=== PATIENT | female | born 1955 | race Caucasian/White ===

== ENCOUNTER 2017-09-13 04:55 | Observation (INO) | payer MEDICARE, OTHER ==
[2017-09-13] MEDS ORDERED: NITROGLYCERIN OINT 1 INCH/GM PACKET TOPICAL STA (05:35)
[2017-09-13] MEDS ORDERED: ASPIRIN 81 MG PO STA (05:35)
[2017-09-13 05:49] LABS: Basophils # (A) 0.1 k/uL (0-0.2); Basophils % (A) 1 %; Eosinophils # (A) 0.3 k/uL (0-0.7); Eosinophils % (A) 3 %; HCT 39.9 % (34.0-46.0); HGB 13.5 gm/dL (11.4-16.0); Lymphocytes # (A) 2.6 k/uL (1.0-4.8); Lymphocytes % (A) 28 %; MCH 30.4 pg (25.0-35.0); MCHC 33.9 g/dL (31.0-37.0); MCV 89.9 fL (80.0-100.0); Mean Platelet Volume 7.6; Monocytes # (A) 0.6 k/uL (0-1.0); Monocytes % (A) 7 %; Neutrophils # (A) 5.5 k/uL (1.3-7.7); Neutrophils % (A) 60 %; Platelet Count 275 k/uL (150-450); RBC 4.44 m/uL (3.80-5.40); WBC 9.2 k/uL (3.8-10.6)
[2017-09-13 05:58] LABS: ALT 41 U/L (9-52); AST 37 U/L (14-36); Albumin 4.1 g/dL (3.5-5.0); Alkaline Phosphatase 110 U/L (38-126); Anion Gap 12 mmol/L; Blood Urea Nitrogen 19 mg/dL (7-17); Calcium 9.7 mg/dL (8.4-10.2); Carbon Dioxide 24 mmol/L (22-30); Chloride 107 mmol/L (98-107); Glucose 118 mg/dL (74-99); Magnesium 2.1 mg/dL (1.6-2.3); Potassium 4.3 mmol/L (3.5-5.1); Sodium 143 mmol/L (137-145); Total Bilirubin 0.7 mg/dL (0.2-1.3); Total Protein 6.7 g/dL (6.3-8.2)
--- NOTE | 2017-09-13 06:00 | ED ---
Chest Pain HPI - General Chief Complaint: Chest Pain Stated Complaint: Chest Pain Time Seen by Provider: 09/13/17 05:03 Source: patient Mode of arrival: wheelchair Limitations: no limitations - History of Present Illness Initial Comments: This patient is a 62-year-old woman who presents to be evaluated for a little over 2 days of intermittent symptoms to the left chest, left shoulder, and left neck. She states that it feels like a tightness, and that it does seem to move around. She states that it sometimes it's in the chest, sometimes in the shoulder towards the scapula, sometimes in the left neck. She denies any injury inciting all this. She states that the pains will last about a half an hour. She has not noted worsening symptoms, and states that it may be a little better if she presses on the chest wall. She states that it intensity is moderate. No associated symptoms. MD Complaint: chest pain Onset/Timin -: days(s) Onset: during rest Pain Location: left chest Severity: moderate Quality: tightness Consistency: intermittent Improves With: nothing Worsens With: nothing Treatments Prior to Arrival: none - Related Data Home Medications Medication Instructions Recorded Confirmed Multivitamin [Multivitamins Adult 2 tab PO DAILY 09/13/17 09/13/17 Gummies] Allergies Allergy/AdvReac Type Severity Reaction Status Date / Time No Known Allergies Allergy Verified 09/13/17 11:05 Review of Systems ROS Statement: Those systems with pertinent positive or pertinent negative responses have been documented in the HPI. ROS Other: All systems not noted in ROS Statement are negative. Constitutional: Denies: fever, chills, weakness Respiratory: Denies: cough, dyspnea, wheezes, hemoptysis Cardiovascular: Reports: as per HPI, chest pain. Denies: palpitations, orthopnea, edema, syncope Gastrointestinal: Denies: abdominal pain, nausea, vomiting, diarrhea Genitourinary: Denies: dysuria, hematuria Musculoskeletal: Denies: back pain Skin: Denies: rash Neurological: Denies: headache, weakness, numbness EKG Findings - EKG Results: EKG: interpreted by HEATHER JEREZ, sinus rhythm (Rate 79 bpm), normal axis, normal QRS, normal ST/T, no acute changes - ND, Pacemaker, Normal: Normal tracing: normal tracing Past Medical History Past Medical History: No Reported History History of Any Multi-Drug Resistant Organisms: None Reported Past Surgical History: Orthopedic Surgery, Tubal Ligation Past Psychological History: No Psychological Hx Reported Smoking Status: Current every day smoker Past Alcohol Use History: Rare Past Drug Use History: None Reported - Past Family History Brother(s) Family Medical History: Myocardial Infarction ([place]) Additional Family Medical History / Comment(s): in the 50's from mi Sister(s) Family Medical History: Myocardial Infarction ([place]) Additional Family Medical History / Comment(s): sister in 50's from mi General Exam Limitations: no limitations General appearance: alert, in no apparent distress Head exam: Present: atraumatic, normocephalic Eye exam: Present: normal appearance. Absent: scleral icterus, conjunctival injection Neck exam: Present: normal inspection, full ROM. Absent: tenderness Respiratory exam: Present: normal lung sounds bilaterally. Absent: respiratory distress, wheezes, rales, rhonchi, stridor, chest wall tenderness Cardiovascular Exam: Present: regular rate, normal rhythm, normal heart sounds. Absent: systolic murmur, diastolic murmur, rubs, gallop GI/Abdominal exam: Present: soft. Absent: distended, tenderness, guarding, rebound, mass Extremities exam: Present: normal inspection, normal capillary refill. Absent: pedal edema, calf tenderness Back exam: Present: normal inspection. Absent: CVA tenderness (R), CVA tenderness (L), paraspinal tenderness, vertebral tenderness Neurological exam: Present: alert Skin exam: Present: warm, dry, intact, normal color. Absent: rash Course Vital Signs 09/13/17 09/13/17 09/13/17 04:57 05:14 05:18 Temperature 98.7 F 98.2 F Pulse Rate 80 77 Pulse Rate [ 78 Right] Respiratory 16 14 Rate Blood Pressure 134/72 122/71 O2 Sat by Pulse 99 98 Oximetry 09/13/17 09/13/17 09/13/17 05:21 06:47 07:42 Temperature 98.3 F 98.2 F Pulse Rate 76 75 Pulse Rate [ Right] Respiratory 14 14 16 Rate Blood Pressure 110/60 105/60 O2 Sat by Pulse 97 98 Oximetry Disposition Clinical Impression: Chest pain Disposition: ADMITTED IP TO THIS HOSP Condition: Good Is patient prescribed a controlled substance at d/c from ED?: No
[2017-09-13 06:11] LABS: D-Dimer 0.49 mg/L FEU (<0.60); Partial Thromboplastin Time 22.5 sec (22.0-30.0); Prothrombin Time 9.5 sec (9.0-12.0)
--- NOTE | 2017-09-13 06:27 | XR ---
EXAM: XR Chest, 2 Views CLINICAL HISTORY: Chest Pain TECHNIQUE: Frontal and lateral views of the chest. COMPARISON: June 11, 2011 FINDINGS: Lungs: Mild prominence interstitial markings. This is increased compared to prior study Pleural space: Unremarkable. No pneumothorax. Heart: Unremarkable. No cardiomegaly. Mediastinum: Unremarkable. Bones/joints: Unremarkable. IMPRESSION: Mild prominence interstitial markings. No evidence for effusions or infiltrates
[2017-09-13 06:42] LABS: Troponin I 0.02 ng/mL (0.000-0.034)
[2017-09-13] MEDS ORDERED: NITROGLYCERIN SL TABS 0.4 MG TAB SUBLINGUAL PRN (07:07)
[2017-09-13] MEDS ORDERED: SODIUM CHLORIDE 0.9% 1,000 ML IV SCH (07:15)
[2017-09-13] MEDS ORDERED: MORPHINE SULFATE 4MG/4ML SYRG IV STA (07:20)
[2017-09-13] MEDS ORDERED: KETOROLAC 30 MG/ML 1 ML VIAL IVP STA (07:20)
--- NOTE | 2017-09-13 08:45 | CONS ---
CONSULTATION HISTORY: Ms. Almanza is a 62-year-old female who does not follow with a physician, who came in through the emergency room with symptoms of left-sided chest discomfort. The discomfort started few days ago, worse last night. It is in the shoulder radiating to the neck and worse sometime when she is sitting up or with breathing. She is usually active physically, has no exertional chest pain or exertional dyspnea. She has no dizziness, palpitation, or syncope. She has no prior documented history of coronary artery disease. Her coronary risk factors are positive for smoking. She is nondiabetic, non hypertension and her lipid profile is not available. MEDICATION: His medications at home include Motrin on a p.r.n. basis. REVIEW OF SYSTEMS: RESPIRATORY system: No history of documented asthma, emphysema or bronchitis. GI system: No recent GI bleed. No peptic ulcer disease. system: No dysuria or hematuria. Nervous system: No stroke or seizure. PHYSICAL EXAMINATION: She is a 62-year-old female, alert, oriented, no apparent distress. Blood pressure 105/60 with a heart rate in 70s. HEAD: Normocephalic. Eyes: Sclerae anicteric. Neck good upstroke. No bruit. No jugular venous distention. LUNGS: Clear to auscultation. HEART: Regular rate and rhythm. S1, S2. No S3, no S4. No murmur or rub. ABDOMEN: Soft, nontender. Positive bowel sounds. No organomegaly. EXTREMITIES: No edema. Intact distal pulses. LAB DATA: Lab data revealed a troponin of 0.02. BUN and creatinine of 19 and 0.8. Potassium 4.3, hemoglobin 13.5. EKG revealed a sinus mechanism with a normal axis and intervals. Normal electrocardiogram. Chest x-ray shows no acute infiltrate. IMPRESSION: 1. Chest and shoulder discomfort have atypical features for ischemic heart disease, appears to be noncardiac. 2. Chronic tobacco use. RECOMMENDATION: I will obtain an echocardiogram with Doppler. We will follow her cardiac enzyme and if there is no evidence of significant abnormality then I would expect she should be able to be discharged home to undergo a stress echocardiogram as an outpatient. I have encouraged her to stop smoking. Thank you for this consult. We will follow with you. MMODL / IJN: [id number] /
[2017-09-13] MEDS ORDERED: ACETAMINOPHEN TAB 325 MG TAB PO PRN (11:37)
--- NOTE | 2017-09-13 11:56 | P.HPIM ---
History of Present Illness H&P Date: 09/13/17 Chief Complaint: Chest pain Patient is a 62-year-old female smoker who does not follow with a physician, though states she has a history of intermittent chest discomfort described as a pressure at first told me she has never seeked medical attention for however then later admitted that about 5-5-1/2 years ago she did see a physician regarding similar type left-sided chest pressure. Workup at that time included a cardiac stress test which the patient reports was normal. Patient complains about left sided chest discomfort, states it is a pressure which is associated with left arm tingling however has now been getting some left-sided neck pain. Patient states she thinks this is generally worsened with activity and relieved with rest however in the past few days this is been occurring sporadically. Review of Systems CONSTITUTIONAL: No weight loss, fever, chills, weakness or fatigue. HEENT: Eyes: No visual loss, blurred vision, double vision or yellow sclerae. Ears, Nose, Throat: No hearing loss, sneezing, congestion, runny nose or sore throat. SKIN: No rash or itching. CARDIOVASCULAR: See HPI. RESPIRATORY: + CASTELLANOS. No cough or sputum. GASTROINTESTINAL: No anorexia, nausea, vomiting or diarrhea. No abdominal pain or blood. GENITOURINARY: No burning on urination. No change in frequency. No change in stream. NEUROLOGICAL: No headache, dizziness, syncope, paralysis, ataxia, numbness or tingling in the extremities. No change in bowel or bladder control. MUSCULOSKELETAL: No muscle, back pain, joint pain or stiffness. HEMATOLOGIC: No anemia, bleeding or bruising. PSYCHIATRIC: No history of depression or anxiety. ENDOCRINOLOGIC: No reports of sweating, cold or heat intolerance. No polyuria or polydipsia. ALLERGIES: No history of asthma, hives, eczema or rhinitis. Past Medical History Past Medical History: No Reported History History of Any Multi-Drug Resistant Organisms: None Reported Past Surgical History: Orthopedic Surgery, Tubal Ligation Past Psychological History: No Psychological Hx Reported Smoking Status: Current every day smoker Past Alcohol Use History: Rare Past Drug Use History: None Reported - Past Family History Brother(s) Family Medical History: Myocardial Infarction ([place]) Additional Family Medical History / Comment(s): in the 50's from mi Sister(s) Family Medical History: Myocardial Infarction ([place]) Additional Family Medical History / Comment(s): sister in 50's from mi Medications and Allergies Home Medications Medication Instructions Recorded Confirmed Type Multivitamin [Multivitamins Adult 2 tab PO DAILY 09/13/17 09/13/17 History Gummies] Allergies Allergy/AdvReac Type Severity Reaction Status Date / Time No Known Allergies Allergy Verified 09/13/17 11:05 Physical Exam Vitals: Vital Signs Temp Pulse Pulse Pulse Resp BP BP 09/13/17 07:56 97.5 F L 67 16 107/56 09/13/17 07:42 98.2 F 75 16 105/60 09/13/17 06:47 98.3 F 76 14 110/60 09/13/17 05:21 14 09/13/17 05:18 78 09/13/17 05:14 98.2 F 77 14 122/71 09/13/17 04:57 98.7 F 80 16 134/72 Pulse Ox 09/13/17 07:56 98 09/13/17 07:42 98 09/13/17 06:47 97 09/13/17 05:21 09/13/17 05:18 09/13/17 05:14 98 09/13/17 04:57 99 Intake and Output 09/12/17 09/13/17 09/13/17 22:59 06:59 14:59 Other: Weight 59.874 kg 63 kg General: A/O x 3, NAD, Lying in bed comfortably HEENT: EOMI, MMM, atraumatic normocephalic Neck: Supple. No JVD, trachea midline CVS: Regular rate and rhythm. + S1/S2, no murmurs/gallops/rubs Respiratory: Bilateral air entry noted. Clear to auscultation, no wheeze, no rhonchi Abdomen: Soft, nontender, nondistended Extremities: No lower extremity edema. No clubbing or cyanosis Skin: No rash or skin change noted Psych: Without hallucinations, abnormal affect, or abnormal behaviors during the examination Results CBC & Chem 7: 09/13/17 05:00 09/13/17 05:00 Labs: Abnormal Lab Results - Last 24 Hours (Table) 09/13/17 Range/Units 05:00 BUN 19 H (7-17) mg/dL Glucose 118 H (74-99) mg/dL AST 37 H (14-36) U/L Thrombosis Risk Factor Assmnt - Choose All That Apply Each Factor Represents 1 point: Age 41-60 years Other Risk Factors: No Other congenital or acquired thrombophilia - If yes, enter type in comment: No Thrombosis Risk Factor Assessment Total Risk Factor Score: 1 Thrombosis Risk Factor Assessment Level: Low Risk Assessment and Plan (1) Smoker Current Visit: Yes Status: Acute Code(s): F17.200 - NICOTINE DEPENDENCE, UNSPECIFIED, UNCOMPLICATED SNOMED Code(s): 56842227 (2) Chest pain Current Visit: Yes Status: Acute Code(s): R07.9 - CHEST PAIN, UNSPECIFIED SNOMED Code(s): 10831058 Plan: 1. Atypical chest pain 2. Chronic tobacco use Patient has 1 negative troponin, no ECG findings. Cardiology was consulted while the patient was in the ED. As the patient describes chest pressure which she believes is worse with activity and relieved with rest, and does have a family history of premature cardiac , and has a personal history of long- standing chronic tobacco use, patient should undergo a cardiac stress test should her serial enzymes be negative. Patient states she is able to run on a treadmill, would do a exercise stress echocardiogram. Cardiology has ordered a simple echocardiogram however. As patient is currently chest pain free and this has been a long-standing issue, she could potentially have the stress test as outpatient.
[2017-09-13 12:17] LABS: Creatine Kinase 67 U/L (30-135)
[2017-09-13 12:29] LABS: Creatine Kinase MB 0.7 ng/mL (0.0-2.4); Troponin I <0.012 ng/mL (0.000-0.034)
[2017-09-13 12:35] VITALS: PULSE 82
[2017-09-13 16:12] VITALS: BP 93/56; RESP 16; TEMP 98.1
--- NOTE | 2017-09-13 18:03 | ECHOF ---
Referral Reason: MEASUREMENTS -------- HEIGHT: 160.0 cm WEIGHT: 59.9 kg BP: IVSd: 0.8 cm (0.6 - 1.1) LVIDd: 4.6 cm (3.9 - 5.3) LVPWd: 1.0 cm (0.6 - 1.1) IVSs: 0.9 cm LVIDs: 3.2 cm LVPWs: 1.3 cm LA Diam: 2.6 cm (2.7 - 3.8) LAESV Index (A-L): 26.78 ml/m Ao Diam: 2.6 cm (2.0 - 3.7) AV Cusp: 1.7 cm (1.5 - 2.6) LA Diam: 2.9 cm (2.7 - 3.8) MV EXCURSION: 19.089 mm (> 18.000) MV EF SLOPE: 64 mm/s (70 - 150) EPSS: 1.3 cm MV E Will: 0.69 m/s MV DecT: 232 ms MV A Will: 0.82 m/s MV E/A Ratio: 0.85 RAP: 5.00 mmHg RVSP: 28.98 mmHg FINDINGS -------- Sinus rhythm. This was a technically good study. LV size, wall thickness and systolic function are normal, with an EF greater than 55%. The right ventricle is normal in size. Normal LA size by volume 22+/-6 ml/m2. The right atrial size is normal. The aortic valve is trileaflet, and appears structurally normal. No aortic stenosis or regurgitation. The mitral valve is normal. Mild mitral regurgitation is present. Mild tricuspid regurgitation present. There is no evidence of pulmonary hypertension. The right v entricular systolic pressure, as measured by Doppler, is 28.98mmHg. There is no pulmonic regurgitation present. The aortic root size is normal. There is no pericardial effusion. CONCLUSIONS -------- 1. This was a technically good study. 2. LV size, wall thickness and systolic function are normal, with an EF greater than 55%. 3. Normal LA size by volume 22+/-6 ml/m2. 4. The aortic valve is trileaflet, and appears structurally normal. No aortic stenosis or regurgitati on. 5. Mild mitral regurgitation is present. 6. Mild tricuspid regurgitation present. 7. There is no evidence of pulmonary hypertension. 8. There is no pulmonic regurgitation present. 9. The aortic root size is normal. 10. There is no pericardial effusion. ZIPPER MEASURER: Paris Brand RDCS
[2017-09-13 18:06] LABS: Creatine Kinase 60 U/L (30-135)
[2017-09-13 18:18] LABS: Creatine Kinase MB 0.6 ng/mL (0.0-2.4); Troponin I <0.012 ng/mL (0.000-0.034)
--- NOTE | 2017-09-13 18:38 | P.DS ---
Providers Date of admission: 09/13/17 07:07 Attending physician: Micky Barrios MD Consults: 09/13/17 07:07 Consult Physician Routine Consulting Provider: Jules Sol Consult Reason/Comments: chest pain Do you want consulting provider notified?: Yes Primary care physician: Stated None Hospital Course: final diagnosis at discharge # Atypical chest pain , unlikely to be cardiac #. Smoking Hospital course 62-year-old female smoker with no PCP, presented for chest pain, intermittent, she recalls that 5 years ago had a stress test that she reports was normal. cardiology evaluated the patient and due to having 3 negative trops , no further chest pain episodes, and unremarkable echocardiogram , their recommendations was to follow up outpatient with cardiology for stress test. patient verbalized understanding and agreement with the plan. currently, denies any chest pain or trouble breathing and reports that she feels back to normal . Constitutional: vital signs stable, Not in acute distress, pleasant, conversant Lungs: Clear to auscultation bilaterally, clear to percussion, normal respiratory effort Cardiovascular: Regular rate and rhythm, no murmurs, no gallops, no rubs, no peripheral edema Extremities: No digital cyanosis , peripheral pulses palpable and equal over bilateral radial arteries and dorsalis pedis artery, no calf muscle tenderness Psych: Alert, oriented to place, person and time, appropriate affect, intact judgment patient discharged home in stable clinical condition Pertinent Studies: echocardiogram, unremarkable , LVEF >55% Patient Condition at Discharge: Good Plan - Discharge Summary Discharge Rx Participant: No New Discharge Prescriptions: No Action Multivitamin [Multivitamins Adult Gummies] 2 tab PO DAILY Discharge Medication List Multivitamin [Multivitamins Adult Gummies] 2 tab PO DAILY 09/13/17 [History] Follow up Appointment(s)/Referral(s): Diony Ceja MD [STAFF PHYSICIAN] - 3 Days Jules Sol MD [STAFF PHYSICIAN] - 1 Week None,Stated [Primary Care Provider] - 1-2 days Patient Instructions/Handouts: Chest Pain (DC), Cardiac Stress Test (DC), Stress Echocardiogram (DC) Activity/Diet/Wound Care/Special Instructions: activity as tolerated, diet low salt , low fat, no smoking Care Plan Goals (MU): follow up outpatient with cardiology for cardiac stress test per cardiology recommendations Discharge Disposition: HOME SELF-CARE
[2017-09-14] MEDS ORDERED: ASPIRIN 325 MG TAB PO SCH (09:00)
== END 2017-09-13 18:50 | disposition home or self-care (01) ==
LOC: EC 04:55 → 3OBS 07:07
PROVIDERS: ADMIT Hospitalist; ATTEND Hospitalist
DX: R07.89 Other chest pain (principal); M25.512 Pain in left shoulder; R20.2 Paresthesia of skin; M54.2 Cervicalgia; F17.200 Nicotine dependence, unspecified, uncomplicated; Z82.49 Family history of ischemic heart disease and other diseases of the circulatory system
CPT/HCPCS: 96374; 99285; 36415; 93005; 93306; 85379; 80053; 82550; 82553; 83735; 84484; 85025; 85610; 85730; 71046; G0378; J1885

== ENCOUNTER → 2018-01-22 | Outpatient (CLI) | payer OTHER ==
--- NOTE | 2018-01-27 10:49 | MM ---
Reason for exam: screening (asymptomatic). Last mammogram was performed 2 years and 7 months ago. History: Patient is postmenopausal. Family history of premenopausal breast cancer in mother at age 53. Benign core biopsy of the right breast, July 03, 2006. Physical Findings: A clinical breast exam by your physician is recommended on an annual basis and results should be correlated with mammographic findings. MG 3D Screening Mammo W/Cad Bilateral CC and MLO view(s) were taken. Technologist: RT Sarah (R)(M) Prior study comparison: March 29, 2014, bilateral MG screening mammo w CAD. February 21, 2012, bilateral digital screening mammo w/CAD. The breast tissue is heterogeneously dense. This may lower the sensitivity of mammography. Previous mammotome biopsy in the right breast. No significant changes when compared with prior studies. ASSESSMENT: Negative, BI-RAD 1 RECOMMENDATION: Routine screening mammogram of both breasts in 1 year.
== END | disposition home or self-care (01) ==
LOC: RADMAMWWP 09:17
PROVIDERS: ATTEND Family Medicine
DX: Z12.31 Encounter for screening mammogram for malignant neoplasm of breast (principal)
CPT/HCPCS: 77063; 77067

== ENCOUNTER → 2018-12-23 | Outpatient (CLI) | payer OTHER ==
--- NOTE | 2018-12-23 10:13 | US ---
EXAMINATION TYPE: US abdomen limited DATE OF EXAM: 12/23/2018 COMPARISON: NONE CLINICAL HISTORY: R10.11 RUQ PAIN. Intermittent RUQ pain x years, worsens after meals EXAM MEASUREMENTS: Liver Length: 11.7 cm Gallbladder Wall: 0.2 cm CBD: 0.1 cm Right Kidney: 8.8 x 5.1 x 3.3 cm Pancreas: wnl Liver: wnl; small left lobe Gallbladder: wnl Evidence for sonographic Elmore's sign: no CBD: wnl Right Kidney: No hydronephrosis or masses seen US exam is technically limited by ribs with intercostal scanning and overlying bowel gas. IMPRESSION: No sonographic evidence of cholelithiasis nor acute cholecystitis.
== END | disposition home or self-care (01) ==
LOC: RADUSWWP 09:27
PROVIDERS: ATTEND Family Medicine
DX: R10.11 Right upper quadrant pain (principal)
CPT/HCPCS: 76705

== ENCOUNTER 2019-04-29 12:27 | Day surgery (SDC) | payer OTHER ==
[2019-04-27 14:51] VITALS: BMI 23.8
[~2019-04-29 12:27] MED LIST: LACTATED RINGERS 1,000 ML IV SCH
[2019-04-29 13:15] VITALS: RESP 16; TEMP 98.6
[2019-04-29] MEDS ORDERED: LIDOCAINE 1% 20 ML VIAL (10MG/ML) FOR IV START INTRADERMA ONE (13:22)
[2019-04-29] MEDS ORDERED: PROPOFOL 10 MG/ML 20 ML VIAL IV ONE (13:57)
[2019-04-29] MEDS ORDERED: LIDOCAINE 1% INJ 10MG/ML (20 ML MDV) ONE (13:57)
--- NOTE | 2019-04-29 14:38 | P.PCN ---
Date of Procedure: 04/29/19 Description of Procedure: Brief history: Patient is a pleasant scheduled for an elective upper endoscopy as well as colonoscopy as a part of evaluation of episodes of melanotic stool and diarrhea. Patient reports intermittent episodes of lower abdominal pain described as pressure-like sensation in the right colon. She also has intermittent episodes of loose stool approximately one time per week with 1 episode of loose stool at that time. She has seen intermittent episodes of blood with bowel movements. This was associated with diarrhea in October. She also seen intermittent episodes of melanotic stool. Last colonoscopy 20 years ago and normal recollection. No family history of colon cancer. Procedure performed: Esophagogastroduodenoscopy with biopsy Colonoscopy with biopsy Estimated blood loss: Minimal. Preoperative diagnosis: Melena, diarrhea, last colonoscopy approximately 15 years ago Anesthesia: MAC Procedure: After informed consent was obtained from the patient was brought into the endoscopy unit and IV sedation was administered by anesthesia under continuous monitoring. Initially upper endoscopy was done. The Olympus GF 190 video endoscope was inserted into the mouth and esophagus intubated without any difficulty and was gradually advanced into the stomach and duodenum and carefully examined. The bulb and second part of the duodenum appeared normal, with biopsies taken to rule out celiac sprue. The scope was then withdrawn into the stomach adequately insufflated with air and upon careful examination the antrum and body, cardia and fundus appeared normal except for diffuse punctate erythema in the antrum and body suggestive of mild gastritis with biopsies. The scope was then withdrawn into the esophagus. The GE junction was located at 36 cm to the incisors. It appeared regular with no erythema erosions or ulcerations. Rest of the esophagus appeared normal. Patient tolerated the procedure well. At this time the patient continued to remain sedation. Initial digital rectal examination was normal, patient does have nonthrombosed external hemorrhoids. Olympus CF 190 video colonoscope was then inserted into the rectum and gradually advanced to the cecum without any difficulty. Careful examination was performed as the scope was gradually being withdrawn. The prep was excellent. The cecum, ascending colon, transverse colon, descending colon, sigmoid colon and rectum appeared normal, with biopsies taken of the left colon due to intermittent episodes of diarrhea. Multiple small sigmoid diverticula noted. Retroflexion was performed in the rectum and no lesions were noted, low-grade internal hemorrhoids seen. Patient tolerated the procedure well. Impression: 1. Mild gastritis in body, biopsied. Duodenal biopsies. 2. Mild sigmoid diverticulosis. Random biopsies of the left colon taken given altered bowel function. Otherwise normal-appearing colon from rectum to cecum. Recommendations: Findings of this examination were discussed with the patient as well as her . Okay to resume diet. Okay to resume medications. Await pathology from biopsies. Recommend repeat colonoscopy in 10 years for screening for malignant neoplasm of the colon, or sooner if signs or symptoms which warrant further evaluation develop.
[2019-04-29 14:56] VITALS: BP 105/69; PULSE 78
== END 2019-04-29 15:40 | disposition home or self-care (01) ==
LOC: ORWHC2ENDO 12:27
PROVIDERS: ATTEND Internal Medicine
DX: K29.51 Unspecified chronic gastritis with bleeding (principal); B96.81 Helicobacter pylori [H. pylori] as the cause of diseases classified elsewhere; K57.30 Diverticulosis of large intestine without perforation or abscess without bleeding; K64.4 Residual hemorrhoidal skin tags; K64.8 Other hemorrhoids; K21.9 Gastro-esophageal reflux disease without esophagitis; R10.31 Right lower quadrant pain; M25.511 Pain in right shoulder; F17.210 Nicotine dependence, cigarettes, uncomplicated; Z79.899 Other long term (current) drug therapy; Z98.51 Tubal ligation status; Z87.81 Personal history of (healed) traumatic fracture; Z98.890 Other specified postprocedural states
CPT/HCPCS: 88305; 88342; 45380; 43239; J2001; J2704

== ENCOUNTER → 2022-03-12 | Outpatient (CLI) | payer OTHER, MEDICARE ==
--- NOTE | 2022-03-12 17:41 | BD ---
EXAMINATION TYPE: Axial Bone Density DATE OF EXAM: 03/12/2022 COMPARISON: NONE CLINICAL HISTORY: 67 years year old Female. ICD-10 CODE: M85.89 OTHER DISORDER OF BONE DENSITY AND S TRUCTURE Height: 61.5 IN Weight: 132 LBS FRAX RISK QUESTIONS: Family History (Parent hip fracture): YES MOTHER History of Fracture in Adulthood: RT ANKLE AGE 55 Secondary Osteoporosis: Current Tobacco Use: YES RISK FACTORS HISTORY OF: Active: YES Diet low in dairy products/other sources of calcium: YES Postmenopausal woman: AGE 48 MEDICATIONS: Additional Medications: VIT D, LIPITOR, MULTI VIT, EXAM MEASUREMENTS: Bone mineral densitometry was performed using the Nu-Pulse System. Bone mineral density as measured about the Lumbar spine is: ----- L1-L4(G/cm2): 0.823 T Score Values are as follows: ----- L1: -2.6 ----- L2: -3.7 ----- L3: -3.3 ----- L4: -2.4 ----- L1-L4: -3.0 Bone mineral density BASELINE Bone mineral density about the R hip (g/cm2): 0.814 Bone mineral density about the L hip (g/cm2): 0.837 T Score values are as follows: -----R Neck: -1.6 -----L Neck: -1.4 -----R Total: -1.4 -----L Total: -1.2 Bone mineral density BASELINE FRAX%s: The graph provided illustrates a 27.9 chance for a major osteoporotic fx and a 3.2 chance for the hips probability for fx in 10 years time. IMPRESSION: Osteoporosis (T Score less than -2.5). There is increased fracture risk and therapy is usually indicated based on age. Re-Screen 1-2 years. NOTE: T-SCORE=SD OF THE YOUNG ADULT MEAN.
--- NOTE | 2022-03-13 09:54 | MM ---
Reason for Exam: Screening (asymptomatic). Last mammogram was performed 4 year(s) and 2 month(s) ago. Patient History: Menarche at age 15. First Full-Term at age 21. Postmenopausal. 07/03/2006, Benign Core Biopsy on the right side. Mother had breast cancer, age 53. Risk Values: Iveth 5 year model risk: 3.6%. NCI Lifetime model risk: 13.3%. Prior Study Comparison: 04/01/2014 Left Diagnostic Mammogram, [facility]. 06/27/2015 Bilateral Screening Mammogram, [facility]. 01/22/2018 Bilateral Screening Mammogram, [facility]. Tissue Density: The breast tissue is heterogeneously dense. This may lower the sensitivity of mammography. Findings: Analyzed By CAD. There is no suspicious group of microcalcifications. Benign round calcifications within both breasts. Biopsy clip within the right breast. Asymmetry demonstrated within the central right breast middle depth approximately 4 cm from the nipple only on the MLO view. Overall Assessment: Incomplete: need additional imaging evaluation, BI-RAD 0 Management: Diagnostic Mammogram of the right breast. A clinical breast exam by your physician is recommended on an annual basis and results should be correlated with mammographic findings. [facility] will attempt to contact patient to return for supplemental views and ultrasound if indicated. Electronically signed and approved by: Benji Powers D.O.
== END | disposition home or self-care (01) ==
LOC: RADMAMWWP 10:34
PROVIDERS: ATTEND Family Medicine
DX: Z12.31 Encounter for screening mammogram for malignant neoplasm of breast (principal); M81.0 Age-related osteoporosis without current pathological fracture; Z78.0 Asymptomatic menopausal state; Z80.3 Family history of malignant neoplasm of breast
CPT/HCPCS: 77063; 77067; 77080

== ENCOUNTER → 2022-03-19 | Outpatient (CLI) | payer OTHER, MEDICARE ==
--- NOTE | 2022-03-19 14:29 | MM ---
Reason for Exam: Additional evaluation requested from abnormal screening. Last screening mammogram was performed less than 1 month ago. Patient History: Menarche at age 15. First Full-Term at age 21. Postmenopausal. 07/03/2006, Benign Core Biopsy on the right side. Mother had breast cancer, age 53. Risk Values: Iveth 5 year model risk: 3.6%. NCI Lifetime model risk: 13.3%. Prior Study Comparison: 04/01/2014 Left Diagnostic Ultrasound, [facility]. 06/27/2015 Bilateral Screening Mammogram, [facility]. 01/22/2018 Bilateral Screening Mammogram, [facility]. 03/12/2022 Bilateral MG 3D screening mammo w/cad, [facility]. Tissue Density: Right: The breast tissue is heterogeneously dense. This may lower the sensitivity of mammography. Findings: Analyzed By CAD. Biopsy clip within the right breast. Asymmetry within the central right breast middle depth does not persist with compression. Overall Assessment: Benign, BI-RAD 2 Management: Screening Mammogram of both breasts in 1 year. A clinical breast exam by your physician is recommended on an annual basis and results should be correlated with mammographic findings. This exam should not preclude additional follow-up of suspicious palpable abnormalities. Results were given to the patient verbally at the time of exam. Electronically signed and approved by: Benji Powers D.O.
== END | disposition home or self-care (01) ==
LOC: RADMAMWWP 14:08
PROVIDERS: ATTEND Family Medicine
DX: R92.8 Other abnormal and inconclusive findings on diagnostic imaging of breast (principal)
CPT/HCPCS: 77061; 77065

== ENCOUNTER 2022-10-14 17:21 | Emergency (ER) | payer MEDICARE, OTHER ==
--- NOTE | 2022-10-14 18:23 | XR ---
EXAMINATION TYPE: XR hand complete LT DATE OF EXAM: 10/14/2022 COMPARISON: None HISTORY: Pain, injury TECHNIQUE: 3 view left hand FINDINGS: Ring is present during the exam. No acute fracture or dislocation is evident. Degenerative joint changes are present within the proximal and distal interphalangeal joint spaces. Soft tissues a ppear normal. Follow-up exams can be performed 7-10 days from acute trauma for continued pain. IMPRESSION: 1. No acute osseous abnormality left hand.
--- NOTE | 2022-10-14 18:24 | XR ---
EXAMINATION TYPE: XR wrist complete LT DATE OF EXAM: 10/14/2022 COMPARISON: None HISTORY: Pain, injury TECHNIQUE: 4 view left wrist FINDINGS: No acute fracture or dislocation is evident. Joint spaces are preserved. Soft tissues appea r normal. If there is pain at the anatomic snuff box, nuclear medicine bone scan can be performed for additiona l evaluation. Follow up exams can be performed 7-10 days from acute trauma for continued pain. IMPRESSION: 1. No acute osseous abnormality left wrist
--- NOTE | 2022-10-14 19:27 | ED ---
General Adult HPI - General Chief complaint: Extremity Injury, Upper Stated complaint: lt wrist injury Time Seen by Provider: 10/14/22 17:32 Source: patient, RN notes reviewed Mode of arrival: ambulatory Limitations: no limitations - History of Present Illness Initial comments: 67-year-old female presents to the emergency department with chief complaint of left wrist pain. She states that she was attempting to move her side by side when her hand got caught in the steering wheel and pulled her wrist earlier today. States she took Motrin at home and does not want anything for pain at this time. Patient has mild swelling of her left hand. Reports that she has been icing her hand and wrist. Denies numbness, tingling. - Related Data Home Medications Medication Instructions Recorded Confirmed Multivitamins, Thera [Multivitamin 1 tab PO DAILY 01/18/19 04/29/19 (formulary)] Omeprazole 20 mg PO DAILY PRN 01/18/19 04/29/19 Vitamin D (Unknown Dose) 1 tab PO DAILY 04/27/19 04/29/19 Allergies Allergy/AdvReac Type Severity Reaction Status Date / Time No Known Allergies Allergy Verified 10/14/22 17:27 Review of Systems ROS Statement: Those systems with pertinent positive or pertinent negative responses have been documented in the HPI. ROS Other: All systems not noted in ROS Statement are negative. Past Medical History Past Medical History: GERD/Reflux Additional Past Medical History / Comment(s): OCCASIONAL BACK PAIN, RIGHT SHOULDER PAIN, HX OF DIARRHEA FOR 2 MONTHS., STATES SEVERE MIGRAINE NAUSEA & VOMITING WHEN ATTEMPTED BOWEL PREP FOR COLONOSCOPY. History of Any Multi-Drug Resistant Organisms: None Reported Past Surgical History: Orthopedic Surgery, Tubal Ligation Additional Past Surgical History / Comment(s): Broken right ankle surgery with hardware placed., COLONOSCOPY Past Anesthesia/Blood Transfusion Reactions: No Reported Reaction, Motion Sickness Past Psychological History: No Psychological Hx Reported Smoking Status: Current every day smoker Past Alcohol Use History: Rare Past Drug Use History: None Reported - Past Family History Brother(s) Family Medical History: Myocardial Infarction ([place]) Additional Family Medical History / Comment(s): in the 50's from [place]. Sister(s) Family Medical History: Myocardial Infarction ([place]) Additional Family Medical History / Comment(s): in 50's from [place] Mother Family Medical History: Cancer Additional Family Medical History / Comment(s): Breast Cancer. Father Family Medical History: Deep Vein Thrombosis (DVT), Pulmonary Embolus General Exam Limitations: no limitations General appearance: alert, in no apparent distress Head exam: Present: atraumatic, normocephalic, normal inspection Eye exam: Present: normal appearance. Absent: scleral icterus, conjunctival injection, periorbital swelling ENT exam: Present: normal exam, mucous membranes moist Neck exam: Present: normal inspection. Absent: tenderness, meningismus, lymphadenopathy Respiratory exam: Present: normal lung sounds bilaterally. Absent: respiratory distress, wheezes, rales, rhonchi, stridor Cardiovascular Exam: Present: regular rate, normal rhythm, normal heart sounds. Absent: systolic murmur, diastolic murmur, rubs, gallop, clicks Extremities exam: Present: other (Mild decreased range of motion at the wrist, radial pulses 2+, normal capillary refill, normal sensation, tenderness over the anterior portion of the wrist and mild snuffbox tenderness) Back exam: Present: normal inspection Neurological exam: Present: alert, oriented X3 Psychiatric exam: Present: normal affect, normal mood Skin exam: Present: warm, dry, intact, normal color. Absent: rash Course Vital Signs 10/14/22 19:55 Temperature 97.8 F Pulse Rate 70 Respiratory 20 Rate Blood Pressure 133/85 O2 Sat by Pulse 100 Oximetry Medical Decision Making - Medical Decision Making Was pt. sent in by a medical professional or institution (, PA, KIER [facility], urgent care, hospital, or assisted...) When possible be specific @ -No Did you speak to anyone other than the patient for history (EMS, parent, family, police, friend...)? What history was obtained from this source @ -No Did you review nursing and triage notes (agree or disagree)? Why? @ -I reviewed and agree with nursing and triage notes Were old charts reviewed (outside hosp., previous admission, EMS record, old EKG, old radiological studies, urgent care reports/EKG's, assisted records)? Report findings @ -No old charts were reviewed Differential Diagnosis (chest pain, altered mental status, abdominal pain women, abdominal pain men, vaginal bleeding, weakness, fever, dyspnea, syncope, headache, dizziness, GI bleed, back pain, seizure, CVA, palpatations, mental health, musculoskeletal)? @ -Differential Musculoskeletal Muscular strain, contusion, ligament sprain, fracture, arthritis, septic arthritis, bursitis, cellulitis, muscle spasm, nerve compression, DVT, arterial occlusion, herpes zoster, electrolyte abnormality, tumor.... This is not meant to be in all inclusive list EKG interpreted by me (3pts min.). @ -None X-rays interpreted by me (1pt min.). @ -X-ray of the left wrist and hand were obtained which showed no acute osseous injury CT interpreted by me (1pt min.). @ -None done U/S interpreted by me (1pt. min.). @ -None done What testing was considered but not performed or refused? (CT, X-rays, U/S, labs)? Why? @ -None What meds were considered but not given or refused? Why? @ -Pain medication was considered but the patient did not want any at this time Did you discuss the management of the patient with other professionals (professionals i.e. , PA, KIER HAND, lab, RT, psych nurse, nursing home social worker, financial planning assistant, t eacher, affirmative action officer, field nurse case manager)? Give summary @ -No Was smoking cessation discussed for >3mins.? @ -No Was critical care preformed (if so, how long)? @ -No Were there social determinants of health that impacted care today? How? (Homelessness, low income, unemployed, alcoholism, drug addiction, transportation, low edu. Level, literacy, decrease access to med. care, [facility], rehab)? @ -No Was there de-escalation of care discussed even if they declined (Discuss DNR or withdrawal of care, Hospice)? DNR status @ -No What co-morbidities impacted this encounter? (DM, HTN, Smoking, COPD, CAD, Cancer, CVA, ARF, Chemo, Hep., AIDS, mental health diagnosis, sleep apnea, morbid obesity)? @ -None Was patient admitted / discharged? Hospital course, mention meds given and ro loni, prescriptions, significant lab abnormalities, going to OR and other pertinent info. @ -Discharged. Patient presented to emergency department chief complaint of left wrist pain following an injury where her hand got caught and pulled her wrist. She is having pain over the medial wrist, she also has some snuffbox tenderness. X-ray of the left wrist and hand were obtained which show no acute osseous injury. Patient was placed in a volar splint and advised to follow-up with orthopedics as a scaphoid injury may not be immediately visible on x-ray. Patient advised to alternate Tylenol and Motrin as needed for pain. Patient discharged in stable condition. Case discussed my attending, Dr. Garibay. Undiagnosed new problem with uncertain prognosis? @ -No Drug Therapy requiring intensive monitoring for toxicity (Heparin, Nitro, Insulin, Cardizem)? @ -No Were any procedures done? @ -No Diagnosis/symptom? @ -Left wrist sprain Acute, or Chronic, or Acute on Chronic? @ -Acute Uncomplicated (without systemic symptoms) or Complicated (systemic symptoms)? @ -Uncomplicated Side effects of treatment? @ -No Exacerbation, Progression, or Severe Exacerbation? @ -No Poses a threat to life or bodily function? How? (Chest pain, [place], [place], pneumonia, PE, COPD, DKA, ARF, appy, cholecystitis, CVA, Diverticulitis, Homicidal, Suicidal, threat to staff... and all critical care pts) @ -No Disposition Clinical Impression: Wrist sprain, Tenderness of anatomical snuffbox Disposition: HOME SELF-CARE Condition: Stable Instructions (If sedation given, give patient instructions): Wrist Injury (ED) Additional Instructions: Please return to the Emergency Department if symptoms worsen or any other concerns. Is patient prescribed a controlled substance at d/c from ED?: No Referrals: Joseph Howard DO [Primary Care Provider] - 1-2 days Kalani Kerr DO [Doctor of Osteopathic Medicine] - 1-2 days Time of Disposition: 19:27
[2022-10-14 19:58] VITALS: BP 133/85; PULSE 70; RESP 20; TEMP 97.8
== END 2022-10-14 19:58 | disposition home or self-care (01) ==
LOC: EC 17:21
DX: S62.002A Unspecified fracture of navicular [scaphoid] bone of left wrist, initial encounter for closed fracture (principal); S63.502A Unspecified sprain of left wrist, initial encounter; K21.9 Gastro-esophageal reflux disease without esophagitis; F17.200 Nicotine dependence, unspecified, uncomplicated; Z79.899 Other long term (current) drug therapy; W31.9XXA Contact with unspecified machinery, initial encounter
CPT/HCPCS: 29125; 99283

== ENCOUNTER → 2023-06-04 | Outpatient (CLI) | payer OTHER, MEDICARE ==
--- NOTE | 2023-06-04 18:35 | US ---
EXAMINATION TYPE: US abdomen complete DATE OF EXAM: 06/04/2023 COMPARISON: 12/23/2018 CLINICAL INDICATION: Female, 68 years old with history of R10.1 Acute abdomen; RUQ pain, diarrhea aft er eating fatty foods. No other pain or symptoms TECHNIQUE: Multiple sonographic images of the abdomen are obtained. FINDINGS: EXAM MEASUREMENTS: Liver Length: 13.8 cm Gallbladder Wall: 0.3 cm CBD: 0.3 cm Spleen: 8.0 cm Right Kidney: 8.1 x 3.9 x 5.1 cm Left Kidney: 9.7 x 5.3 x 4.8 cm TALLIER NOTES: Limited visualization due to overlying bowel gas *Did abdomen complete per Charleen Pancreas: Obscured by bowel gas Liver: obscured by overlying gas, intercostal views used. Gallbladder: wnl as best visualized. Gallbladder wall is borderline thickened 0.3 cm. Evidence for sonographic Elmore's sign: No CBD: wnl Spleen: wnl as best visualized Right Kidney: No hydronephrosis or masses seen Left Kidney: No hydronephrosis or masses seen Upper IVC: wnl as best visualized Abd Aorta: wnl IMPRESSION: 1. Borderline thickening of the gallbladder wall. 2. No acute ultrasound abdomen is otherwise evident.
== END | disposition home or self-care (01) ==
LOC: RADUSWWP 10:17
PROVIDERS: ATTEND Family Medicine
DX: R10.11 Right upper quadrant pain (principal); R11.0 Nausea; R19.7 Diarrhea, unspecified
CPT/HCPCS: 76700

== ENCOUNTER → 2023-09-16 | Outpatient (CLI) | payer OTHER, MEDICARE ==
--- NOTE | 2023-09-17 21:45 | MM ---
Reason for Exam: Screening (asymptomatic). Last mammogram was performed 1 year(s) and 6 month(s) ago. Patient History: Menarche at age 15. First Full-Term at age 21. Postmenopausal. 07/03/2006, Benign Core Biopsy on the right side. Mother had breast cancer, age 53. Risk Values: Iveth 5 year model risk: 3.7%. NCI Lifetime model risk: 12.8%. Prior Study Comparison: 03/29/2014 Bilateral Screening Mammogram, [facility]. 04/01/2014 Left Diagnostic Mammogram, [facility]. 06/27/2015 Bilateral Screening Mammogram, [facility]. 01/22/2018 Bilateral Screening Mammogram, [facility]. 03/12/2022 Bilateral MG 3D screening mammo w/cad, [facility]. 03/19/2022 Right MG 3D work up w/cad RT, [facility]. Tissue Density: There are scattered areas of fibroglandular density. Findings: Analyzed By CAD. Microclip right breast from prior biopsy. Unchanged areas of asymmetric density on both sides. There is no suspicious group of microcalcifications or new suspicious mass in either breast. Overall Assessment: Benign, BI-RAD 2 Management: Screening Mammogram of both breasts in 1 year. See note below in regards to the patient's increased 5 year Iveth score. Patient should continue monthly self-breast exams. A clinical breast exam by your physician is recommended on an annual basis. This exam should not preclude additional follow-up of suspicious palpable abnormalities. Note on Iveth scores and lifetime risk: 1. A Iveth score greater than 3% is considered moderate risk. If this is the case, consider specialist referral to assess eligibility for a risk reducing agent. 2. If overall lifetime risk for the development of breast cancer is 20% or higher, the patient may qualify for future screening with alternating mammogram and breast MRI. Electronically signed and approved by: Ladi Burns M.D. Radiologist
== END | disposition home or self-care (01) ==
LOC: RADMAMWWP 08:41
PROVIDERS: ATTEND Family Medicine
DX: Z12.31 Encounter for screening mammogram for malignant neoplasm of breast (principal); Z78.0 Asymptomatic menopausal state; Z80.3 Family history of malignant neoplasm of breast
CPT/HCPCS: 77063; 77067